=== PATIENT | female | born 1950 | race Caucasian/White ===

== ENCOUNTER 2024-12-18 11:03 | Outpatient (AMB) | payer MEDICARE, OTHER, SELFPAY ==
--- OUTSIDE RECORDS SUMMARY | 2024-09-12 14:30 | XMS_ITS ---
Author Organization [facility] Address [facility] [place] [address] Care Team Providers Care Egg Processor Name Role Phone DO NOT, USE UNKNOWN Primary Care Provider Gumaro Yepez Unavailable [phone] SELF, REFERRAL Unavailable Unavailable Sita Benson Unavailable [phone] REASON FOR VISIT RIGHT T11, T12, L1 MB Radiofrequency Ablation Encounters Encounter Location Date Provider Diagnosis [facility] [address] [address] [address] 09/12/2024 Sita Benson Plan Of Treatment No Information Progress Notes * SUNDEEP ZARATEHDOB:[birth year] (74 yo F)Acc No.[id number]:09/12/2024 Patient: KATINA CANDELARIA Provider: Citlaly Benson M.D :1950 A ge:74 Y S ex:Female Date:09/12/2024 Address:[address] [place] [address] [facility] Pcp:USE UNKNOWN DO NOT Subjective: * Chief Complaints: * 1 . RIGHT T11, T12, L1 MB Radiofrequency Ablation. * Medical History: Objective: * Vitals: Assessment: Plan: * Treatment: * Images: * Electronic signature of Davy Benson MD on 12/18/2024 at 01:32 PM EDT Sign off status: Pending * Provider: Citlaly Benson M.D Date: 0 09/12/2024 Generated for Nithyai jorge/Fatemeh/eTransmitting on: 0 12/18/2024 01:32 PM EDT
--- OUTSIDE RECORDS SUMMARY | 2024-09-25 14:00 | XMS_ITS ---
Author Organization [facility] Address [address] [place] [address] Care Team Providers Care Automotive Sales Professional Name Role Phone DO NOT, USE UNKNOWN Primary Care Provider Gumaro Yepez Unavailable [phone] SELF, REFERRAL Unavailable Unavailable Rogers Preciado Unavailable [phone] Allergies Allergen (clinical drug ingredient) Drug/Non Drug Allergy documented on EMR Reaction Allergy Type Onset Date Status angiotensin-converting enzyme inhibitor (FN) URIEL Inhibitors Unknown Drug Allergy Acti ve REASON FOR VISIT RIGHT sacroiliac joint injection Encounters Encounter Location Date Provider Diagnosis [facility] [address] [address] [address] 09/25/2024 Rogers Preciado Plan Of Treatment No Information Progress Notes * SUNDEEP ZARATEHDOB:[birth year] (74 yo F)Acc No.[id number]:09/25/2024 Patient: KATINA CANDELARIA Provider: Jovani Preciado MD :1950 A ge:74 Y S ex:Female Date:09/25/2024 Address:[address] [place], [place] [address], [id number] Pcp:USE UNKNOWN DO NOT Subjective: * Chief Complaints: * 1 . RIGHT sacroiliac joint injection. * HPI: C onstitutional: Patient has consented to: R IGHT sacroiliac joint injection. ALLERGIES: Patient denies any allergies to Iodine, shellfish or Contrast. BLOOD THINNERS/ABX: Patient denies taking any antibiotics, aspirin or contra-indicated blood thinners. INFECTION: Patient denies having rash, fever or infection. FALSEWORK BUILDER: Patient has a bus driver present. CHEMISTRY TECHNICAL OFFICER: Denies having a pacemaker or defibrillator. * Medical History: C ANCER; BREAST, ASTHMA, OSTEOPHOROSIS, ARTHRITIS. * Surgical History: T UBAL LIGATION , RIGHT ROTATOR CUFF , BREAST , LEFT ROTATOR CUFF . * Family History: ARTHRITIS. * Allergies: A CE Inhibitors. Objective: * Vitals: Assessment: Plan: * Treatment: * Procedures: L IDOCAINE 2% 100mg/5mL (20mg/mL) LOT#: [id number] EXPIRATION DATE: 06/2025 [facility]#: [id number] - - - - - - - - - - - - - - - - - - - - - - - - - - - - - - - - - BUPIVICAINE 0.5% HALFWAY 50mg/10ml(5mg/ml) LOT#: [id number] EXPIRATION DATE: 04/11/25 [facility]#: [id number] - - - - - - - - - - - - - - - - - - - - - - - - - - - - - - - - - TRIAMCINOLONE (KENALOG 40) 400mg/10mL (40mg/mL) LOT#: [id number] EXPIRATION DATE: 10/09/2025 [facility]#: [id number] - - - - - - - - - - - - - - - - - - - - - - - - - - - - - - - - - OMNIPAQUE 350mgI/mL 100mL LOT#:[id number] EXPIRATION DATE: 08/31/2026 [facility]#: [id number] - - - - - - - - - - - - - - - - - - - - - - - - - - - - - - - - - . * Images: * Electronic signature of Stew Preciado MD on 12/18/2024 at 01:32 PM EDT Sign off status: Pending * Provider: Jovani Preciado MD Date: 0 09/25/2024 Generated for Gena patel/Fatemeh/Jesse on: 0 12/18/2024 01:32 PM EDT History and Physical Notes * HPI (History of Present Illness) Category Sub-Category Detail Notes Category Not es Constitutional Patient has consented to: RIGHT sacroiliac joint injection. ALLERGIES: Patient denies any allergies to Iodine, shellfish or Contrast. BLOOD THINNERS/ABX: Patient denies taking any antibiotics, aspirin or contra-indicated blood thinners. INFECTION: Patient denies having rash, fever or infection. FALSEWORK BUILDER: Patient has a bus driver present. CHEMISTRY TECHNICAL OFFICER: Denies having a pacemaker or defibrillator.
[2024-12-18 11:06] VITALS: BP 126/84; PULSE 72; O2SAT 96; BMI 27.8
--- NOTE | 2024-12-18 11:06 | A.OFFVIS_ITS ---
Vital Signs 12/18/24 11:06 Height 5 ft 4 in Weight 162 lb 0.636 oz BMI 27.8 BP 126/84 Blood Pressure Location Lt brachial Position Sitting Pulse 72 Pulse Source Pulse Oximeter Pulse Oximetry (%) 96 Oxygen Delivery Method Room Air Intake Visit Reasons: copd Intake Note: Pt would like to discuss changing Wixela. Corrections Officer Required: No Accompanied by: Self / Same As Patient Allergies URIEL Inhibitors (URIEL INHIBITORS) Allergy (Unknown, Verified 12/18/24 11:43) COUGH uriel inhibators Allergy (Unknown, Uncoded 12/18/24 11:43) Unknown Medication List - Last Reconciled 12/18/24 by April Beckham MD albuterol sulfate 90 mcg/actuation (Ventolin HFA) 2 puffs inhalation Q6H PRN amlodipine 2.5 mg PO DAILY atorvastatin (Lipitor) 10 mg PO DAILY cyclobenzaprine 5 mg PO TID PRN fluticasone propion-salmeterol 500-50 mcg/dose (Wixela Inhub) 1 inh inhalation BID hydrochlorothiazide 12.5 mg PO DAILY losartan 100 mg PO DAILY meloxicam 15 mg PO DAILY xhcmrdhedoec-ewzu-rbnrb acid 18-400 mg-mcg (Centrum Women) 1 tab PO DAILY Do you need a note to return to daycare/school/sports/work: No HPI HPI copd: Details: THIS 74 YEARS OLD FEMALE IS A NEW PATIENT MANAGEMENT OF HER COPD. SHE IS LIVING BY HERSELF, BUT HER SISTER LIVES IN THE SAME HOUSE. SHE USED TO WORK A IT SYSTEMS ANALYST CONSULTANT. SHE HAS NO HISTORY OF EXPOSURE TO DUST , CHEMICALS , SMOKE ETC.. STARTED HAVING ATTACKS OF BRONCHIAL ASTHMA AT AGE 11, SHE WOULD HAVE SUCH ATTACKS ONLY WHEN SHE HAD COLD SYMPTOMS. IN BETWEEN SHE WAS OKAY. SHE HAS HAD NO ALLERGY TO ANY. PARTICULAR ITEMS HER SYMPTOMS AFFECT HER AROUND THE YEAR. OVER THE PAST MANY YEARS THE SYMPTOMS HAVE GOTTEN SOMEWHAT WORSE., WITH MORE FREQUENT EPISODES OF COUGH AND SHORTNESS OF BREATH. SHE HAS WIXELA 500-50 1 INHALATION B.I.D. BUT CLAIMS THAT SHE DOES NOT FEEL ANY DIFFERENCE, . WHEN SHE USES IT SHE DOES USE ALBUTEROL 2 PUFFS Q 6 HOURS P.R.N. ONLY WHEN SHE HAS COLD SYMPTOMS. SHE DOES NEED TO USE PREDNISONE FOR A FEW DAYS WHEN SHE HAS ANY UPPER RESPIRATORY INFECTION, AND IT HAPPENS ABOUT ONCE OR TWICE A DAY. 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 SHE SUFFERED FROM COVID INFECTION TWICE, BUT RECOVERED WELL AT HOME. SHE IS UP TO DATE ON HER VACCINE SHE HAS ALWAYS BEEN NONSMOKER. AT PRESENT SHE IS OKAY, EXCEPT FOR MILD INTERMITTENT COUGH, GETS SHORT OF BREATH AFTER CLIMBING 2 FLIGHTS OF STAIRS. AND ALSO GETS SHORT OF BREATH IF SHE HAS TO WALK UP HILL. USUALLY IN [facility], WITH MILD HYPERTENSION, BACK PAIN, AND HYPERLIPIDEMIA, WHICH ARE ALL WELL CONTROLLED. [facility] Medical History Asthma with COPD Social History Patient Tobacco Use Status: Never used Tobacco Review of Systems Const All systems reviewed & are unremarkable except as noted in HPI and below Eyes Reports no additional complaints ENT Reports no additional complaints Card Denies chest pain and Reports dyspnea on exertion (MILD ) Resp Reports as per HPI and Reports dyspnea on exertion (MILD ) Reports no additional complaints Musc Reports back pain Skin/Breast Reports system reviewed and no additional complaints, except as documented Neuro Reports no additional complaints Psych Reports no additional complaints Endo Reports no additional complaints Levon/Lymph Reports no additional complaints Aller/Immun Reports no additional complaints Physical Exam Vital Signs: Last Vital Signs Pulse 72 12/18/24 11:06 BP 126/84 12/18/24 11:06 Pulse Ox 96 12/18/24 11:06 Oxygen Delivery Method Room Air 12/18/24 11:06 BMI result Body Mass Index 27.8 Const General: healthy appearing, comfortable, no acute distress, alert and awake Orientation/consciousness: patient oriented x3 HEENT Head: Yes normal to inspection General nose exam: No nasal polyps present and No nasal discharge present Face and sinus: Yes sinuses nontender Mouth: oropharynx normal Throat: Yes posterior oropharynx normal Eyes General: appearance normal, both eyes and all related structures Neck Neck: Yes normal visual inspection, Yes no lymphadenopathy, Yes trachea midline and Yes no JVD Thyroid: Thyroid normal Resp Other: CHEST IS SYMMETRICAL, PERCUSSION NOTE RESONANT , BREATH SOUNDS ARE SLIGHTLY. DISTANT WITH PROLONGED EXPIRATORY PHASE THERE ARE NO AUDIBLE WHEEZES, RHONCHI OR CREPITATIONS. Cardio Palpation: normal PMI Rate: regular rate Rhythm: regular rhythm Heart sounds: no gallops and no murmurs Peripheral pulses: Peripheral pulses 2+ throughout GI Palpation (GI): Soft to palpation, Tenderness to palpation present (GI), No hepatosplenomegaly present and Palpable mass present Auscultation: normal bowel sounds Back/Spine/Pelvis Thoracic/Lumbar Spine: thoracic and lumbar spine normal to inspection and thoraco-lumbar ROM limited Skin General skin exam: no rashes or lesions noted Neuro General: patient oriented x3 and no focal motor deficits Cranial nerves: Yes CN's II-XII intact bilaterally Extrem General: Yes normal to inspection, Yes no clubbing, cyanosis or edema and Yes no calf tenderness Psych Appearance: grossly normal and well kempt Speech and movement: Normal speech and movement present Results Reviewed Results Reviewed: PULMONARY FUNCTION TEST PERFORMED IN 2022 AT [facility], FVC 46%, FEV1 39%. FEV1/FVC 64 NO RESPONSE TO BRONCHODILATORS TLC 65% DLCO 59% C/W SEVERE OBSTRUCTIVE AIRWAY DISORDER Assessment & Plan Assessment & Plan (1) Asthma with COPD: Comment: SHE HAS HISTORY OF BRONCHIAL ASTHMA STARTING AT AGE 11, IT SEEMS TO HAVE PROBLEM REST SLOWLY IN 2 CHRONIC OBSTRUCTIVE PULMONARY DISEASE. PULMONARY FUNCTION TEST IN 2022, CONSISTENT WITH SEVERE OBSTRUCTIVE AIRWAY DISORDER, AND WITHOUT ANY RESPONSE TO BRONCHODILATOR THERAPY. THIS IS MORE CHRONIC OBSTRUCTIVE PULMONARY DISEASE THEN BRONCHIAL ASTHMA AT THIS TIME Code(s): J44.89 - Other specified chronic obstructive pulmonary disease Category: Medical Plan: I SPENT PLENTY OF TIME IN EXPLAINING TO THE PATIENT ABOUT HER PULMONARY FUNCTION TEST FINDINGS AND. DISCUSSION ABOUT BRONCHIAL ASTHMA VS COPD. AT THIS POINT I THINK WE WILL GET A BASELINE CHEST X-RAY , PULMONARY FUNCTION TEST, AND THEN DECIDE WHAT WOULD BE THE BEST MODE OF TREATMENT. I HAVE CUT DOWN THE DOSE OF WIXELA TO 250-50 1 INHALATION B.I.D., AND ADVISED HER TO USE ALBUTEROL 2 PUFFS Q 6 HOURS BUT ONLY P.R.N. IF THERE IS ANY WHEEZING. SHE MAY NEED TO HAVE SHORT COURSE OF PREDNISONE , IF AFTER ANY RESPIRATORY INFECTION HER SYMPTOMS LAST FOR MORE THAN 5 DAYS . I TOLD HER THAT THE BEST STEP IS TO PREVENT ANY RESPIRATORY INFECTIONS, AND MAKE SURE THAT SHE GETS COVID WELL FLU VACCINE ON A YEARLY BASIS. DISCUSSED WITH HER ABOUT THE GENERAL MANAGEMENT OF COPD. Orders: Orders XR chest 2V Today J44.89 - Other specified chronic obstructive pulmonary disease PFT pulmonary function test Today J44.89 - Other specified chronic obstructive pulmonary disease Medications: New albuterol sulfate 90 mcg/actuation (Ventolin HFA) 2 puffs inhalation Q4-6H PRN 8.5 grams 5RF shortness of breath or wheezing 30 days prednisone 20 mg PO BID 10 tabs 2RF 5 days fluticasone propion-salmeterol 250-50 mcg/dose (Wixela Inhub) 1 inh inhalation BID 60 ea 5RF ASTHMA/COPD 30 days Coding Level of Care Code New Pt Level 4 (80803) Diagnoses Asthma with COPD J44.89
--- OUTSIDE RECORDS SUMMARY | 2024-12-18 13:33 | XMS_ITS ---
Author Name [facility] Organization Unknown History of Medication Use Medication Directions Dispensed Refills Start Date End Date Stat us Synvisc-One 48 mg/6 mL intra-articular syringe Take 6 mL by intraarticular route. 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 ProblemAct ENS_AONECT Encounters Encounter Type Encounter Reason Primary Diagnosis Location Date Ambulatory [facility] 02/23/2024 Ambulatory [facility] 02/22/2024 Amb[facility] 02/22/2024 Amb[facility] 02/01/2024 Amb[facility] 02/01/2024 Amb[facility] 08/11/2022 Care Team Organization Name Specialty Phone Email Start Date End Da te [facility] ACO 11/29/2024 [facility] Sammy Vides [facility] 03/24/202311/28 [facility] Shabnam [facility] 02/17/2022 11/29/2023
--- OUTSIDE RECORDS SUMMARY | 2024-12-18 13:33 | XMS_ITS | Patient Health Record ---
Author Organization [facility] Address [address] [place] [address] [place] [address] Care Team Providers Care Mill Helper Name Role Phone DO NOT, USE UNKNOWN Primary Care Provider Gumaro Yepez Unavailable [phone] SELF, REFERRAL Unavailable Unavailable Rogers Preciado Unavailable [phone] Sita Benson Unavailable [phone] Allergies Allergen (clinical drug ingredient) Drug/Non Drug Allergy documented on EMR Reaction Allergy Type Onset Date Status angiotensin-converting enzyme inhibitor (FN) URIEL Inhibitors Unknown Drug Allergy Acti ve Reason For Referral No Information Medications Medication SIG (Take, Route, Frequency, Duration) Notes Start Date End Date Status Losartan Potassium 100 MG 1 tablet Orall y Once a day Active amLODIPine Besylate 2.5 MG 1 tablet Oral ly Once a day Active Valium 5 MG 1-2 tablet as needed 1 hour before procedure Orally once; Duration: 1 days Active Lidocaine 5 % 1 patch remove after 12 hours Externally Once a day; Duration: 30 days Active Atorvastatin Calcium 10 MG 1 tablet Oral ly Once a day Active hydroCHLOROthiazide 12.5 MG 1 capsule in the morning Orally Once a day Active Problems Problem Type SNOMED Code ICD Code Onset Dates Problem Status W/U Status Risk Notes Problem Chronic pain syndrome (064170578) Chronic pain syndrome (G89.4) Active confirmed Problem Lumbar spondylosis (554746203) Lumbar spondylosis (M47.816) Active confirmed Problem Thoracic facet syndrome (038926104) Thoracic facet syndrome (M47.894) Active confirmed Problem Thoracic spondylosis (914527199) Thoracic spondylosis (M47.814) Active confirmed Vital Signs Blood pressure diastolic 93 mm Hg 09/15/2024 Blood pressure systolic 127 mm Hg 09/15/2024 Encounters Encounter Location Date Provider Diagnosis [facility] [address] [place] [address] [address] [place] [address] 07/13/2024 Gumaro Haley Chronic pain syndrome G89.4 ; Thoracic spondylosis M47.814 ; Lumbar spondylosis M47.816 and Myofascial muscle pain M79.18 [facility] [place] [address] 07/27/2024 Gumaro Haley Chronic pain syndrome G89.4 ; Thoracic spondylosis M47.814 ; Lumbar spondylosis M47.816 and Myofascial muscle pain M79.18 [facility] [address] [address] [place] [address] 08/08/2024 Athanasios Tzaras Chronic pain syndrome G89.4 and Thoracic spondylosis M47.814 [facility] [address] 08/10/2024 Gumaro Haley Chronic pain syndrome G89.4 ; Thoracic spondylosis M47.814 ; Lumbar spondylosis M47.816 and Myofascial muscle pain M79.18 [facility] [address] [address] [place] [address] 08/22/2024 Athanasios Tzaras Chronic pain syndrome G89.4 and Thoracic spondylosis M47.814 [facility] [address] 08/24/2024 Gumaro Haley Chronic pain syndrome G89.4 ; Thoracic spondylosis M47.814 ; Lumbar spondylosis M47.816 and Myofascial muscle pain M79.18 [facility] [address] [address] [place] [address] 09/15/2024 Rogers Jassal Chronic pain syndrome G89.4 and Thoracic spondylosis M47.814 [facility] [place] [address] 09/21/2024 Gumaro Haley Thoracic spondylosis M47.814 ; Sacroiliac joint disease M53.3 ; Chronic pain syndrome G89.4 ; Lumbar spondylosis M47.816 and Myofascial muscle pain M79.18 [facility] [address] [place] [address] 07/13/2024 Gumaro Haley Chronic pain syndrome G89.4 [facility] [address] [place] [address] 08/09/2024 Gumaro Haley [facility] [address] [place] [address] 08/24/2024 Gumaro Haley Chronic pain syndrome G89.4 and Thoracic spondylosis M47.814 Assessments Encounter Date Diagnosis (ICD Code) Assessment Notes Treatment Notes Treatment Clinical Notes Section Notes 07/13/2024 Chronic pain syndrome (ICD-10 - G89.4) 07/13/2024 Thoracic spondylosis (ICD-10 - M47.814) 07/13/2024 Chronic pain syndrome (ICD-10 - G89.4) 07/27/2024 Chronic pain syndrome (ICD-10 - G89.4) 07/27/2024 Thoracic spondylosis (ICD-10 - M47.814) 08/08/2024 Chronic pain syndrome (ICD-10 - G89.4) 08/10/2024 Chronic pain syndrome (ICD-10 - G89.4) 08/22/2024 Chronic pain syndrome (ICD-10 - G89.4) 08/24/2024 Chronic pain syndrome (ICD-10 - G89.4) 09/15/2024 Chronic pain syndrome (ICD-10 - G89.4) 08/24/2024 Chronic pain syndrome (ICD-10 - G89.4) 09/21/2024 Sacroiliac joint disease (ICD-10 - M53.3) 09/21/2024 Thoracic spondylosis (ICD-10 - M47.814) 08/24/2024 Thoracic spondylosis (ICD-10 - M47.814) 09/15/2024 Thoracic spondylosis (ICD-10 - M47.814) 09/21/2024 Chronic pain syndrome (ICD-10 - G89.4) 08/24/2024 Thoracic spondylosis (ICD-10 - M47.814) 08/22/2024 Thoracic spondylosis (ICD-10 - M47.814) 08/10/2024 Thoracic spondylosis (ICD-10 - M47.814) 08/08/2024 Thoracic spondylosis (ICD-10 - M47.814) 07/27/2024 Lumbar spondylosis (ICD-10 - M47.816) 07/13/2024 Lumbar spondylosis (ICD-10 - M47.816) 07/13/2024 Myofascial muscle pain (ICD-10 - M79.18) 07/27/2024 Myofascial muscle pain (ICD-10 - M79.18) 08/10/2024 Lumbar spondylosis (ICD-10 - M47.816) 08/24/2024 Lumbar spondylosis (ICD-10 - M47.816) 09/21/2024 Lumbar spondylosis (ICD-10 - M47.816) 08/24/2024 Myofascial muscle pain (ICD-10 - M79.18) 09/21/2024 Myofascial muscle pain (ICD-10 - M79.18) 08/10/2024 Myofascial muscle pain (ICD-10 - M79.18) Plan Of Treatment Pending Test Test Name Order Date X ray : Spines, lumbar 2 views 5 X ray : Spines, lumbar 2 views 5 X ray : Spines, lumbar 2 views 5 X ray : Spines, lumbar 2 views 5 X ray : Spines, lumbar 2 views 5 X ray : Spines, lumbar 2 views 5 X ray : Thoracic spine 2 views 5 X ray : Thoracic spine 2 views 5 X ray : Thoracic spine 2 views 5 X ray : Thoracic spine 2 views 5 X ray : Thoracic spine 2 views 5 X ray : Thoracic spine 2 views 5 Insurance Providers Payer Name Payer Address Payer Phone Subscriber Number Group Number Insured Name Patient Relationship to Insured Coverage Start Date Coverage End Date [place] [phone] [id number] KATINA Zarate Self - patient is the insured 6 [facility] [address] [place] [address] [id number] KATINA Zraate Self - patient is the insured Medical (General) History Medical History History ICD Code CANCER; BREAST ASTHMA OSTEOPHOROSIS ARTHRITIS Surgical History Surgery Date(Month/Year) TUBAL LIGATION RIGHT ROTATOR CUFF BREAST LEFT ROTATOR CUFF
--- OUTSIDE RECORDS SUMMARY | 2024-12-18 13:33 | XMS_ITS | Clinical Summary ---
Author Organization [facility] [address] [facility] Address [address] [place] [address] Phone Care Team Providers Care Instrument Processing Tech Name Role Phone Sourav Haque MD Primary Care Provider [phone] Allergies Active Allergy Reactions Criticality Noted Date Comments Yonny Inhibitors Low 11/10/2011 Cough from yonny inhibitor zestoretic Medications acetaminophen (TYLENOL) 325 mg tablet Take 2 tablets (650 mg total) by mouth. 12/29/19 23 Active blood-glucose meter misc 1 Lancet by extracorporeal route 2 (two) times a day. 02/15/20 20 Active calcium carb/mag/vitamin D3 (CALCIUM CARB-VIT D3-MAGNESIUM ORAL) Take 1 tablet by mouth 1 (one) time each day. OTC Active fluticasone-umecli dinium-vilanterol (Trelegy Ellipta) 100-62.5-25 mcg inhaler Inhale 1 puff (100 mcg total). 04/15/19 24 Active lancets (OneTouch Delica Plus Lancet) 30 gauge Apply 1 each topically. 08/27/19 21 Active OneTouch Ultra Test test strip USE TO TEST BLOOD SUGAR ONCE DAILY 11/26/19 21 Active albuterol HFA (PROAIR HFA ; PROVENTIL HFA ; VENTOLIN HFA) 90 mcg/actuation inhaler Inhale 2 puffs by mouth every 4 (four) hours if needed for wheezing or shortness of breath. 8.5 g 10 05/05/19 25 Active atorvastatin (LIPITOR) 10 mg tablet TAKE 1 TABLET DAILY 90 tablet 1 05/05/19 25 Active amLODIPine (NORVASC) 2.5 mg tablet TAKE 1 TABLET DAILY 90 tablet 1 05/05/19 25 Active diclofenac (VOLTAREN) 1 % topical gelIndications:Int ermittent palpitations,Calcu zenaida of right kidney,Acute right-sided low back pain without sciatica,Asthma in adult, moderate persistent, uncomplicated,Pred iabetes,Age-relate d osteoporosis without current pathological fracture,Encounter for screening for cardiovascular disorders Apply 2 gram four times daily to affected joint 100 g 10/10/19 25 Active hydroCHLOROthiazid e (MICROZIDE) 12.5 mg capsuleIndications :Intermittent palpitations,Calcu zenaida of right kidney,Acute right-sided low back pain without sciatica,Asthma in adult, moderate persistent, uncomplicated,Pred iabetes,Age-relate d osteoporosis without current pathological fracture,Encounter for screening for cardiovascular disorders Take 1 capsule (12.5 mg total) by mouth 1 (one) time each day. 90 each 10/10/19 25 Active losartan (COZAAR) 100 mg tabletIndications: Intermittent palpitations,Calcu zenaida of right kidney,Acute right-sided low back pain without sciatica,Asthma in adult, moderate persistent, uncomplicated,Pred iabetes,Age-relate d osteoporosis without current pathological fracture,Encounter for screening for cardiovascular disorders Take 1 tablet (100 mg total) by mouth 1 (one) time each day. 90 each 10/10/19 25 Active alendronate (FOSAMAX) 70 mg tablet Take 1 tablet (70 mg total) by mouth every 7 (seven) days. Take in the morning with a full glass of water, on an empty stomach, and do not take anything else by mouth or lie down for the next 30 min. 12 tablet 4 12/05/19 25 Active Active Problems Problem Noted Date Diagnosed Date Hyperlipidemia 09/23/2022 Overview (05/28/2023): Last Assessment & Plan: Atorvastatin 10 mg at bedtime.Asked her to get her repeat fasting lipids and labs checked today so that they are available for review for her PCP appointment tomorrow. She will go today. Leg pain 09/23/2022 Overview (05/28/2023): Last Assessment & Plan: No obvious palpable cords or masses or swelling but given recent onset of symptoms, will obtain a unilateral lower extremity venous ultrasound to rule out DVT-I have called over to [facility] and they have an appointment for 130PM tomorrow-they will notify the patient Dyspnea on effort 09/23/2022 Overview (05/28/2023): exercise stress echocardiogram on 02/04/2022-she was only able to exercise for 4 minutes and 44 seconds to a 3.8 MET workload but to 74% of max predicted heart rate only but at this level of exercise, she did not have any evidence of ischemia or infarction; she had a normal resting ejection fraction of 60 to 65%. Last Assessment & Plan: Likely related to asthma-recommended that she use the Advair twice daily as recommended and see if her symptoms improve; if not, she can contact us again at which point we can schedule her for some sort of ischemic work-up; I do not feel strongly about nuclear stress test at this time given unremarkable stress echo at symptom limitation and lack of clear symptoms of angina Palpitation 09/22/2022 Overview (05/28/2023): Holter monitor on 02/13/2022 which showed sinus rhythm with an average heart rate of 76 bpm, occasional APCs, rare atrial pairs, atrial bigeminy, 2 atrial runs up to 10 beats, rare PVCs, 1 couplet, symptoms of palpitations and shortness of breath correlated to normal sinus rhythm. Last Assessment & Plan: No recent recurrences. Given such infrequent episodes, I do not think any monitor that I order will be of great benefit. Her Holter monitor did show a few runs of atrial tachycardia but interestingly they were not symptomatic. I did review that she could investigate commercial EKG recording apps such as the [employer] or [email or web address]. These are an [id number] cost so it is purely if she is interested. Ultimately, if this is an arrhythmia, it is Most likely an atrial tachycardia since that was what was seen on Holter monitoring and less likely atrial fibrillation or atrial flutter due to the short nature of the symptoms. I reviewed vagal maneuvers she could try should she have another episode. I also reviewed that if she does have symptoms, she should sit down and rest. If symptoms last more than 30 minutes and are not alleviated by vagal maneuvers, she should go to the ER. She verbalized understanding of all of this information. Ultimately, supraventricular tachycardias are generally benign but can be quite symptomatic. She has had a reassuring stress echo which showed normal ejection fraction and no evidence of ischemia at symptom limitation. Age-related osteoporosis wit hout current pathological fracture 06/20/2021 Newly diagnosed diabetes ([facility] V24, [facility] V 28) 02/15/2020 Breast cancer ([facility] V24, [facility] V28) 016 Knee pain, left 07/08/2015 Overview (05/28/2023): [facility] Sleep apnea 06/12/2014 Overview (05/28/2023): Can not tolerate cPAP HH (hiatus hernia) 07/24/2013 Erosive gastritis 07/24/2013 HTN (hypertension) 11/10/2011 Overview (05/28/2023): Last Assessment & Plan: Slightly elevated today but well controlled on prior visits; continue current losartan 100 mg daily, hydrochlorothiazide 12.5 mg daily, amlodipine 2.5 mg daily 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 GERD (gastroesophageal reflux disease) 2 Fe deficiency anemia 11/10/2011 Overview (05/28/2023): Patient has had multiple evaluations including 3 colonoscopies and upper endoscopies done at the same sitting and a capsule endoscopy, and a capsule endoscopy with no source of bleeding identified Asthma in adult, moderate persistent, uncomplica fany 11/10/2011 Overview (05/28/2023): Last Assessment & Plan: Given that the treatment with dual therapy with Advair is not helping and in the other hand producing hoarseness, I explained the technique to use triple therapy with Trelegy 1 puff once a day. She has now developed COPD in the last PFTs so I think triple therapy will be beneficial for her. I will see her back when she comes back from [place] in August 2023. I have also ordered a chest x-ray. Encounters Date Type Department Care Team Description 12/03/2024 Telephone Adult [address] [phone] Nathalia Solo NP 11/30/2024 9:53 AM EDT - 11/30/2024 11:59 PM EDT Hospital Encounter [facility] [address] [place] [phone] Intermittent palpitations; Calculus of right kidney; Acute right-sided low back pain without sciatica; Asthma in adult, moderate persistent, uncomplicated; Prediabetes; Age-related osteoporosis without current pathological fracture; Encounter for screening for cardiovascular disorders Discharge Disposition: Home or Self Care 11/30/2024 8:45 AM EDT - 11/30/2024 11:59 PM EDT Hospital Encounter [facility] [address] [place] [phone] Encounter for screening mammogram for breast cancer Discharge Disposition: Home or Self Care 10/20/2024 Telephone Pulmonolgy - [facility] [address] [facility] [address] [place] [phone] Sourav Haque MD 10/04/2024 Telephone Adult Medicine [facility] [address], [place] [phone] Nathalia Solo NP 10/03/2024 Telephone Adult Medicine [address] [phone] Nathalia Solo NP 10/02/2024 12:32 PM EDT - 10/02/2024 11:59 PM EDT Hospital Encounter Radiology Department - [address] [phone] Intermittent palpitations; Calculus of right kidney; Acute right-sided low back pain without sciatica; Asthma in adult, moderate persistent, uncomplicated; Prediabetes; Age-related osteoporosis without current pathological fracture; Encounter for screening for cardiovascular disorders Discharge Disposition: Home or Self Care 09/28/2024 1:00 PM EDT Office Visit Adult Medicine [address] [phone] Nathalia Solo NP Intermittent palpitations (Primary Dx); Calculus of right kidney; Acute right-sided low back pain without sciatica; Asthma in adult, moderate persistent, uncomplicated; Prediabetes; Age-related osteoporosis without current pathological fracture; Encounter for screening for cardiovascular disorders from Last 3 Months Immunizations Name Administration Dates Next Due Influenza trivalent, 0.5mL ( Fluzone High-dose) 65yo and older 12/28/2022,01/27/2022,01/13/2021,12/24,03/07/2019,02/06/2018,01/05/2017 Accertify SARS-CoV-2 COVID-19, mRNA, LNP-S, preservative free 02/12/2021,07/28/2020,06/30/2020 Pneumococcal conjugate 13 va lent (Prevnar 13, PCV13) 2mo and older 02/19/2016 Pneumococcal polysaccharide 23 valent (Pneumovax 23) 2yo and older 02/10/2018 Tdap Tetanus diptheria acell ular pertussis (Boostrix; Adacel) 7yo and older 12/28/2022 Zoster Live 06/15/2012 Surgical History Surgery Date Site/Laterality Comments BREAST LUMPECTOMY PROCEDURE:BREAST LUMPECTOMY SHOULDER SURGERY PROCEDURE: HISTORICAL SHOULDER SURGERY; COMMENT: right rotator cuff TUBAL LIGATION PROCEDURE: HISTORICAL TUBAL LIGATION COLONOSCOPY PROCEDURE: HISTORICAL COLONOSCOPY; COMMENT: has had 3 UPPER GASTROINTESTINAL ENDOSCOPY 07/24/2013 PROCEDURE: ID UPPER GI ENDOSCOPY PERFORMED; 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 Biopsies: No dysplasia. Medical History Medical History Date Comments Iron (Fe) deficiency anemia DX:I bruce (Fe) deficiency anemia Malignant neoplasm of breast (female) ([facility] V24, [facility] V28) DX:Malignant neoplasm of br east (female) ([facility]) Age related osteoporosis DX:Age related osteoporosis GERD (gastroesophageal reflux disease) DX:GERD (gastroesophageal reflux disease) Asthma DX:Asthma Diabetes mellitus ([facility] V 24, [facility] V28) DX:Diabetes mellitus ([facility]) Unspecified essential hypertension DX:Unspecified essential hypertension Esophageal reflux DX:Esophageal reflux Other specified personal his tory presenting hazards to health(V15.89) DX:Other specifie d personal history presenting hazards to health(V15.89); COMMENT: melanoma on nose Breast cancer ([facility] V24, [facility] V28) 01/2015 DX:Breast cancer ([facility]); COMM ENT: Sees Dr. Garcia Sleep apnea 06/12/2014 DX:Sleep apnea; COMMENT: Can not tolerate cPAP Breast cancer ([facility] V24, [facility] V28) 07/08/2015 DX:Breast cancer ([facility]) Knee pain, left 07/08/2015 DX:Knee pain, le ft Family History Medical History Relation Name Comments Asthma Brother Hypertension Brother Thyroid disease Daughter Throat cancer Father nonsmoker, d at 70 Heart failure Mother from it Other: afib Mother Stroke Mother dementia, at age 86 Thyroid disease Sister 2 sisters adhikari ve Breast cancer Neg Hx Colon cancer Neg Hx Ovarian cancer Neg Hx Pancreatic cancer Neg Hx Prostate cancer Neg Hx Relation Name Status Comments Brother Alive Daughter Alive Father (Age 70) larngl can cer Maternal Grandmother (Age 89) Mother (Age 87) hi baez Sister Social History Tobacco Use Types Packs/Day Years Used Date Smoking Tobacco: Never Smokeless Tobacco: Never Alcohol Use Standard Drinks/Week Comments Yes 2.5 (1 standard drink = 0.6 oz p ure alcohol) Comments No Sex and Gender Information Value Date Recorded Sex Assigned at Not on file Legal Sex Female 4:41 AM EST Gender Identity Not on file Sexual Orientation Not on file Obstetrics History Last Filed Vital Signs Vital Sign Reading Time Taken Comments Blood Pressure 132/85 09/28/2024 12:57 PM EDT Pulse 78 09/28/2024 12:57 PM EDT Temperature 36.1 C (96.9 F) 09/28/2024 12:57 PM EDT Respiratory Rate 16 09/28/2024 12:57 PM EDT Oxygen Saturation 95% 09/28/2024 12:57 PM EDT Inhaled Oxygen Concentration - - Weight 70.3 kg (155 lb) 11/30/2024 10:07 AM EDT Height 162.6 cm (5' 4 ) 11/30/2024 10:07 AM EDT Body Mass Index 26.61 11/30/2024 10:07 AM EDT Plan of Treatment Upcoming Encounters Date Type Department Care Team (Late st Contact Info) Description 03/30/2025 11:00 AM EST Office Visit Adult Medicine [facility] [address] [place] [phone] Sourav Haque MD [address] [place] [phone] Health Maintenance Due Date Last Done Comments Zoster Vaccines (1 of 2) 08/10/2012 06/15/2012 Colorectal Cancer Screening: Stool Based Tests (FOBT/FIT) 03/20/2022 Medicare Annual Wellness Visit 03/20/2022 Social Influencers of Health Screening 03/20/2022 RSV Immunization Adult Patients (1 - 1-dose 75+ series) 2024 COVID-19 Vaccine (6 - Pfizer risk season) 2024 02/15/2024, 01/12/2022, 02/12/2021, Additional history exists Influenza Vaccine (#1) 2024 , 12/28/2022, 01/27/2022, Additional history exists Diabetes: Blood Sugar Control Test (HGBA1C) 04/03/2025 10/02/2024, 01/18/2024 Diabetes: Annual Retina Eye Exam 07/26/2025 07/26/2024, 12/22/2022 Diabetes: Annual Foot Exam 09/28/2025 09/28/2024, Falls Risk Assessment 09/28/2025 09/28/2024, 023 Diabetes: Annual Urine Albumin-Creatinine Ratio (uACR) 10/02/2025 10/02/2024 Diabetes: Annual GFR (Glomerular Filtration Rate) 10/02/2025 10/02/2024, 01/18/2024 Hypertension/CHF/CAD Annual BMP Blood Test 10/02/2025 10/02/2024, 01/18/2024 Osteoporosis Screening (Bone Density Screening) 11/30/2026 11/30/2024, 06/17/2021, 12/09/2018, Additional history exists Cholesterol Screening (Lipid Panel) 10/02/2029 10/02/2024, 01/18/2024 DTaP,Tdap,and Td Vaccines (2 - Td or Tdap) 12/28/2032 12/28/2022 Pneumococcal Vaccine: 50+ Years Completed 02/10/2018, 02/19/2016 Hepatitis C Screening Addressed 06/17/2021 Overri dden with the intention of not completing the topic Depression Screening Completed 09/28/2024 Breast Cancer Screening Discontinued 12/01/19, 10/12/2023, 09/08/2022, Additional history exists HIB Vaccines Aged Out No longer eligi ble based on patient's age to complete this topic HPV Vaccines Aged Out No longer eligi ble based on patient's age to complete this topic Hepatitis A Vaccines Aged Out No long er eligible based on patient's age to complete this topic Hepatitis B Vaccines Aged Out No long er eligible based on patient's age to complete this topic IPV Vaccines Aged Out No longer eligi ble based on patient's age to complete this topic MMR Vaccines Aged Out No longer eligi ble based on patient's age to complete this topic Meningococcal ACWY Vaccine Aged Out N o longer eligible based on patient's age to complete this topic Meningococcal B Vaccine Aged Out No l onger eligible based on patient's age to complete this topic RSV Immunization Patients Under 20 months Aged Out No longer eligible based on patient's age to complete this topic Varicella Vaccines Aged Out No longer eligible based on patient's age to complete this topic Procedures Procedure Name Priority Date/Time Associated Diagnosis Comments BD BONE DENSITY DXA AXIAL SKELETON Routine 11/30/2024 11:12 AM EDT Intermittent palpitations Calculus of right kidney Acute right-sided low back pain without sciatica Asthma in adult, moderate persistent, uncomplicated Prediabetes Age-related osteoporosis without current pathological fracture Encounter for screening for cardiovascular disorders MG MAMMO DIGITAL SCREENING W LAN BILAT Routine 11/30/2024 10:14 AM EDT Encounter for screening mammogram for breast cancer BELL URINE CULTURE TUBE Routine 10/02/2024 3:08 PM EDT Intermittent palpitations Calculus of right kidney Acute right-sided low back pain without sciatica Asthma in adult, moderate persistent, uncomplicated Prediabetes Age-related osteoporosis without current pathological fracture Encounter for screening for cardiovascular disorders US RETROPERITONEAL COMPLETE Routine 10/02/2024 1:42 PM EDT Intermittent palpitations Calculus of right kidney Acute right-sided low back pain without sciatica Asthma in adult, moderate persistent, uncomplicated Prediabetes Age-related osteoporosis without current pathological fracture Encounter for screening for cardiovascular disorders URINALYSIS WITH REFLEX MICROSCOPIC AND CULTURE Routine 10/02/2024 1:22 PM EDT Intermittent palpitations Calculus of right kidney Acute right-sided low back pain without sciatica Asthma in adult, moderate persistent, uncomplicated Prediabetes Age-related osteoporosis without current pathological fracture Encounter for screening for cardiovascular disorders CBC WITH AUTO DIFFERENTIAL Routine 10/02/2024 1:22 PM EDT Intermittent palpitations Calculus of right kidney Acute right-sided low back pain without sciatica Asthma in adult, moderate persistent, uncomplicated Prediabetes Age-related osteoporosis without current pathological fracture Encounter for screening for cardiovascular disorders URINALYSIS WITH REFLEX MICROSCOPIC AND CULTURE Routine 10/02/2024 1:22 PM EDT Intermittent palpitations Calculus of right kidney Acute right-sided low back pain without sciatica Asthma in adult, moderate persistent, uncomplicated Prediabetes Age-related osteoporosis without current pathological fracture Encounter for screening for cardiovascular disorders COMPREHENSIVE METABOLIC PANEL Routine 10/02/2024 1:22 PM EDT Intermittent palpitations Calculus of right kidney Acute right-sided low back pain without sciatica Asthma in adult, moderate persistent, uncomplicated Prediabetes Age-related osteoporosis without current pathological fracture Encounter for screening for cardiovascular disorders LIPID PANEL WITH REFLEX TO DIRECT LDL Routine 10/02/2024 1:22 PM EDT Intermittent palpitations Calculus of right kidney Acute right-sided low back pain without sciatica Asthma in adult, moderate persistent, uncomplicated Prediabetes Age-related osteoporosis without current pathological fracture Encounter for screening for cardiovascular disorders CBC AND DIFFERENTIAL Routine 10/02/2024 1:22 PM EDT Intermittent palpitations Calculus of right kidney Acute right-sided low back pain without sciatica Asthma in adult, moderate persistent, uncomplicated Prediabetes Age-related osteoporosis without current pathological fracture Encounter for screening for cardiovascular disorders HEMOGLOBIN A1C Routine 10/02/2024 1:22 PM EDT Intermittent palpitations Calculus of right kidney Acute right-sided low back pain without sciatica Asthma in adult, moderate persistent, uncomplicated Prediabetes Age-related osteoporosis without current pathological fracture Encounter for screening for cardiovascular disorders MICROALBUMIN CREATININE URINE RATIO Routine 10/02/2024 1:22 PM EDT Intermittent palpitations Calculus of right kidney Acute right-sided low back pain without sciatica Asthma in adult, moderate persistent, uncomplicated Prediabetes Age-related osteoporosis without current pathological fracture Encounter for screening for cardiovascular disorders CULTURE URINE Routine 10/02/2024 1:22 PM EDT Intermittent palpitations Calculus of right kidney Acute right-sided low back pain without sciatica Asthma in adult, moderate persistent, uncomplicated Prediabetes Age-related osteoporosis without current pathological fracture Encounter for screening for cardiovascular disorders from Last 3 Months Results * BD Bone Density DXA Axial Skeleton (11/30/2024 11:12 AM EDT) Anatomical Region Laterality Modality Wrist, Hip, L-spine Bone Densito metry 11/30/2024 11:3 3 AM EDT Impressions 11/30/2024 11:34 AM EDT 1. Osteoporosis. 2. FRAX analysis yields a 10-year probability of major osteoporotic fracture of 26.1% and a 10-year probability of hip fracture of 11.8%. Code 58775 -------- FINAL REPORT -------- Dictated By: Mayco Perdomo Dictated Date: 11/30/2024 11:33 ET Assigned Physician: Mayco Perdomo Reviewed and Electronically Signed By: Mayco Perdomo Signed Date: 11/30/2024 11:34 ET Workstation ID: [id number] Transcribed By: Self Edit Transcribed Date: 11/30/2024 11:33 ET Narrative 11/30/2024 11:34 AM EDT HISTORY: The patient is a 74-year-old postmenopausal female with clinical concern for metabolic bone disease. FINDINGS: Dual energy x-ray absorptiometry of the lumbar spine and femurs is performed. The mean bone mineral density at L1-3 is 0.681 gm/cm2 which is 58% of that of young normals and 69% of that of age matched controls. This yields a T-score of -4.1 and a Z-score of -2.5 which is diagnostic of osteoporosis. The mean bone mineral density of the femurs bilaterally is 0.684 gm/cm2 which is 68% of that of young normals and 85% of that of age matched controls. This yields a T-score of -2.6 and a Z-score of -0.9 which is diagnostic of osteoporosis. The T-score of the right femoral neck is -3.4 and that of the left femoral neck is -2.7 which is diagnostic of osteoporosis. Procedure Note Mayco Perdomo MD - 11/30/2024 HISTORY: The patient is a 74-year-old postmenopausal female with clinicalconcern for metabolic bone disease. FINDINGS: Dual energy x-ray absorptiometry of the lumbar spine and femursis performed. The mean bone mineral density at L1-3 is 0.681 gm/cm2 whichis 58% of that of young normals and 69% of that of age matched controls.This yields a T-score of -4.1 and a Z-score of -2.5 which is diagnostic ofosteoporosis. The mean bone mineral density of the femurs bilaterally is 0.684 gm/ua3lbjxe is 68% of that of young normals and 85% of that of age matchedcontrols. This yields a T-score of -2.6 and a Z-score of -0.9 which isdiagnostic of osteoporosis. The T- score of the right femoral neck is -3.4and that of the left femoral neck is -2.7 which is diagnostic ofosteoporosis. IMPRESSION: 1. Osteoporosis. 2. FRAX analysis yields a 10-year probability of major osteoporoticfracture of 26.1% and a 10-year probability of hip fracture of 11.8%. Code 48998 -------- FINAL REPORT -------- Dictated By: Mayco Perdomo Dictated Date: 11/30/2024 11:33 ET Assigned Physician: Mayco Perdomo Reviewed and Electronically Signed By: Mayco Perdomo Signed Date: 11/30/2024 11:34 ET Workstation ID: [id number] Transcribed By: Self Edit Transcribed Date: 11/30/2024 11:33 ET us Nathalia Solo NP IMG DXA PROCEDURES Final Res ult * MG Mammo Digital Screening w Lan bilat (11/30/2024 10:14 AM EDT) Anatomical Region Laterality Modality Breast Bilateral Mammography 11/30/2024 10:5 2 AM EDT Impressions 11/30/2024 11:05 AM EDT No mammographic evidence of new or recurrent malignancy. No suspicious interval change. A negative mammogram in the presence of a clinically suspicious palpable abnormality does not preclude the possibility of malignancy or alter the indications for biopsy. ASSESSMENT: BI-RADS 2: BENIGN RECOMMENDATION(S): 1: Routine screening mammogram BILATERAL in 1 year. [facility]amm[facility] location[facility] at [address], [address] -------- FINAL REPORT -------- Dictated By: Joao Wang Dictated Date: 11/30/2024 10:52 ET Assigned Physician: Joao Wang Reviewed and Electronically Signed By: Joao Wang Signed Date: 11/30/2024 11:05 ET Workstation ID: [id number] Transcribed By: Self Edit Transcribed Date: 11/30/2024 10:52 ET Narrative 11/30/2024 11:05 AM EDT EXAM: SCREENING MAMMOGRAPHY, BILATERAL HISTORY: SCREENING. Personal history of breast cancer. Previous reports indicate right breast cancer treated with lumpectomy 2014. COMPARISON: 10/12/23, 09/08/22, 03/17/21, 10/08/20, 03/15/20 TECHNIQUE: Synthesized CC and MLO projections of each breast. Tomosynthesis of each breast in the CC and MLO projections. ADDITIONAL IMAGING: None Computer-aided detection was employed with the [employer] AI 3-D. TISSUE DENSITY: There are scattered areas of fibroglandular density. (BI-RADS category B) FINDINGS: RIGHT BREAST: There is unchanged architectural distortion with some central dystrophic calcification at the lumpectomy site. There are diffuse arterial and scattered round typically benign calcifications. No change in the region of clips in the right axilla. No additional suspicious right breast findings LEFT BREAST: There are multiple circumscribed varying sized equal density oval masses some with typically benign calcifications. No significant interval change. No additional suspicious left breast findings Procedure Note Joao Wnag MD - 11/30/2024 EXAM: SCREENING MAMMOGRAPHY, BILATERAL HISTORY: SCREENING. Personal history of breast cancer. Previous reportsindicate right breast cancer treated with lumpectomy 2014. COMPARISON: 10/12/23, 09/08/22, 03/17/21, 10/08/20, 03/15/20 TECHNIQUE: Synthesized CC and MLO projections of each breast.Tomosynthesis of each breast in the CC and MLO projections. ADDITIONAL IMAGING: None Computer-aided detection was employed with the [employer] AI 3-D. TISSUE DENSITY: There are scattered areas of fibroglandular density.(BI-RADS category B) FINDINGS: RIGHT BREAST: There is unchanged architectural distortion with some central dystrophiccalcification at the lumpectomy site. There are diffuse arterial andscattered round typically benign calcifications. No change in the regionof clips in the right axilla. No additional suspicious right breastfindings LEFT BREAST: There are multiple circumscribed varying sized equal density oval massessome with typically benign calcifications. No significant intervalchange. No additional suspicious left breast findings IMPRESSION: No mammographic evidence of new or recurrent malignancy. No suspicious interval change. A negative mammogram in the presence of a clinically suspicious palpableabnormality does not preclude the possibility of malignancy or alter theindications for biopsy. ASSESSMENT: BI-RADS 2: BENIGN RECOMMENDATION(S): 1: Routine screening mammogram BILATERAL in 1 year. [facility] location[facility] at [address], [address] -------- FINAL REPORT -------- Dictated By: Joao Wang Dictated Date: 11/30/2024 10:52 ET Assigned Physician: Joao Wang Reviewed and Electronically Signed By: Joao Wang Signed Date: 11/30/2024 11:05 ET Workstation ID: [id number] Transcribed By: Self Edit Transcribed Date: 11/30/2024 10:52 ET us Self Referral Sppl IMG BI PROCEDURES Final Resul t * Bell urine culture tube (10/02/2024 3:08 PM EDT) Extra Tube Hold for add-ons. 10/02/2024 5:01 PM EDT [facility] Comment:Auto resulted. Urine Urine specimen obtained by clean catch procedure / Unknown Non-blood Collection / Unknown 10/02/2024 3:08 PM EDT 10/02/2024 3:08 PM EDT Nathalia Solo [employer] LAB URINE ORDERABLES Final R esult [facility] [address] [place] [id number], [place] [phone] * US Retroperitoneal Complete (10/02/2024 1:42 PM EDT) Anatomical Region Laterality Modality Body Ultrasound 10/02/2024 1:56 PM EDT Impressions 10/02/2024 2:03 PM EDT Multiple bilateral renal calcifications seen , the largest measuring 0.9 cm in the mid pole of the right kidney, which could represent a nonobstructing stone. -------- FINAL REPORT -------- Dictated By: Manju Braden Dictated Date: 10/02/2024 13:56 ET Assigned Physician: Manju Braden Reviewed and Electronically Signed By: Manju Braden Signed Date: 10/02/2024 14:03 ET Workstation ID: [id number] Transcribed By: Self Edit Transcribed Date: 10/02/2024 13:56 ET Narrative 10/02/2024 2:03 PM EDT US RETROPERITONEAL COMPLETE TECHNIQUE: Complete ultrasound evaluation of the retroperitoneum was performed. COMPARISON: Abdomen/pelvis CT on February 13, 2013. Report of x-ray of the lumbar spine at outside facility on July 13, 2024 describes right renal calculus. Reason for the study: kidney stone Xray found ? stone in the right kidney, FINDINGS: RIGHT KIDNEY: Size: 11.6 cm. Multiple cystic lesions seen, the largest bilobed located in the lower pole of the kidney measuring 6.3 x 5.3 x 5.7 cm. Echogenic focus in the mid pole measuring 0.9 cm could correlate with the radiographic finding. Additional calcifications seen. No hydronephrosis. LEFT KIDNEY: Size: 10.2 cm. Multiple cystic lesions seen, the largest measuring 8.1 x 4.2 x 7.6 cm in the lower pole. Multiple calcifications seen. BLADDER: Partially distended urinary bladder without obvious intravesical stones. Only left ureteral jet seen. Prevoid urinary bladder volume measures 85.3 cc. Post void volume of 0 cc. Procedure Note Manju Braden MD - 10/02/2024 US RETROPERITONEAL COMPLETE TECHNIQUE: Complete ultrasound evaluation of the retroperitoneum was performed. COMPARISON: Abdomen/pelvis CT on February 13, 2013. Report of x-ray of thelumbar spine at outside facility on July 13, 2024 describes right renalcalculus. Reason for the study: kidney stone Xray found ? stone in the right kidney, FINDINGS: RIGHT KIDNEY: Size: 11.6 cm. Multiple cystic lesions seen, the largestbilobed located in the lower pole of the kidney measuring 6.3 x 5.3 x 5.7cm. Echogenic focus in the mid pole measuring 0.9 cm could correlate withthe radiographic finding. Additional calcifications seen. Nohydronephrosis. LEFT KIDNEY: Size: 10.2 cm. Multiple cystic lesions seen, the largestmeasuring 8.1 x 4.2 x 7.6 cm in the lower pole. Multiple calcificationsseen. BLADDER: Partially distended urinary bladder without obvious intravesicalstones. Only left ureteral jet seen. Prevoid urinary bladder volumemeasures 85.3 cc. Post void volume of 0 cc. IMPRESSION: Multiple bilateral renal calcifications seen , the largest measuring 0.9cm in the mid pole of the right kidney, which could represent anonobstructing stone. -------- FINAL REPORT -------- Dictated By: Manju Braden Dictated Date: 10/02/2024 13:56 ET Assigned Physician: Manju Braden Reviewed and Electronically Signed By: Manju Braden Signed Date: 10/02/2024 14:03 ET Workstation ID: [id number] Transcribed By: Self Edit Transcribed Date: 10/02/2024 13:56 ET us Nathalia Solo NP IMG US PROCEDURES Final Resu lt * (ABNORMAL) Urinalysis with reflex microscopic and culture (10/02/2024 1:22 PM EDT) Specific [place] Urine 1.003 1.003 - 1.030 LAB URINALYSIS - AUTOMATED METHOD 10/02/2024 5:47 PM EDT [facility] pH, Urine 7.0 5.0 - 8.0 pH LAB URINALYSIS - AUTOMATED METHOD 10/02/2024 5:47 PM EDT [facility] Leukocytes, Urine Trace(A) Negative LAB URINALYSIS - AUTOMATED METHOD 10/02/2024 5:47 PM [facility] Nitrite, Urine Negative Negative LAB URINALYSIS - AUTOMATED METHOD 10/02/2024 5:47 PM [facility] Protein, Urine Negative <=Trace mg/dL LAB URINALYSIS - AUTOMATED METHOD 10/02/2024 5:47 PM [facility] Glucose, Urine Negative Negative mg/dL LAB URINALYSIS - AUTOMATED METHOD 10/02/2024 5:47 PM [facility] Ketones, Urine Negative Negative mg/dL LAB URINALYSIS - AUTOMATED METHOD 10/02/2024 5:47 PM [facility] Urobilinogen, Urine 0.2 0.2 - 1.0 mg/dL LAB URINALYSIS - AUTOMATED METHOD 10/02/2024 5:47 PM [facility] Bilirubin, Urine Negative Negative LAB URINALYSIS - AUTOMATED METHOD 10/02/2024 5:47 PM [facility] Blood, Urine Negative Negative LAB URINALYSIS - AUTOMATED METHOD 10/02/2024 5:47 PM [facility] RBC, Urine 4.0 0 - 4 /HPF LAB URINALYSIS - AUTOMATED METHOD 10/02/2024 5:47 PM [facility] WBC, Urine 1.1 0 - 4 /HPF LAB URINALYSIS - AUTOMATED METHOD 10/02/2024 5:47 PM [facility] Squamous Epithelial, Urine 61(H) 0 - 60 /LPF LAB URINALYSIS - AUTOMATED METHOD 10/02/2024 5:47 PM [facility] Bacteria, Urine Negative Negative /HPF LAB URINALYSIS - AUTOMATED METHOD 10/02/2024 5:47 PM [facility] Hyaline Casts, Urine 1.19 0 - 3 /LPF LAB URINALYSIS - AUTOMATED METHOD 10/02/2024 5:47 PM EDT [facility] Urine Urine specimen obtained by clean catch procedure / Unknown Non-blood Collection / Unknown 10/02/2024 1:22 PM EDT 10/02/2024 1:22 PM EDT Nathalia Solo [employer] LAB URINE ORDERABLES Final R esult [facility] [address] [place] [address], [place] [phone] * Lipid panel with reflex to direct LDL (10/02/2024 1:22 PM EDT) Cholesterol 167 0 - 200 mg/dL LAB CHEMISTRY METHOD 10/02/2024 8:50 PM EDT [facility] Triglycerides 90 0 - 150 mg/dL LAB CHEMISTRY METHOD 10/02/2024 8:50 PM EDT [facility] HDL 63 >=40 mg/dL LAB CHEMISTRY METHOD 10/02/2024 8:50 PM EDT [facility] LDL Calculated 86 0 - 100 mg/dL LAB CHEMISTRY METHOD 10/02/2024 8:50 PM EDT [facility] VLDL Cholesterol Marco 18 mg/dL LAB CHEMISTRY METHOD 10/02/2024 8:50 PM EDT [facility] Non HDL Chol. (LDL+VLDL) 104 <145 mg/dL LAB CHEMISTRY METHOD 10/02/2024 8:50 PM EDT [facility] Chol/HDL Ratio 2.7 0.0 - 4.4 LAB CHEMISTRY METHOD 10/02/2024 8:50 PM EDT [facility] Blood Venous blood specimen / Unknown Venipuncture / Unknown 10/02/2024 1:22 PM EDT 10/02/2024 1:22 PM EDT Nathalia Solo [employer] LAB BLOOD ORDERABLES Final R esult [facility] [address] [place] [address], * (ABNORMAL) CBC auto differential (10/02/2024 1:22 PM EDT) WBC 7.4 4.8 - 10.8 K/mcL LAB HEMETOLOGY METHOD 10/02/2024 4:52 PM EDT [facility] RBC 5.00(H) 3.80 - 4.80 M/mcL LAB HEMETOLOGY METHOD 10/02/2024 4:52 PM EDT [facility] Hemoglobin 14.9 11.5 - 16.0 g/dL LAB HEMETOLOGY METHOD 10/02/2024 4:52 PM EDT [facility] Hematocrit 46.5 35.0 - 47.0 % LAB HEMETOLOGY METHOD 10/02/2024 4:52 PM EDT [facility] MCV 92.4 79.0 - 98.0 FL LAB HEMETOLOGY METHOD 10/02/2024 4:52 PM EDT [facility] MCH 29.6 27.0 - 32.0 pcg LAB HEMETOLOGY METHOD 10/02/2024 4:52 PM EDT [facility] MCHC 32.0 32.0 - 37.0 g/dL LAB HEMETOLOGY METHOD 10/02/2024 4:52 PM EDT [facility] RDW 13.1 11.0 - 15.0 % LAB HEMETOLOGY METHOD 10/02/2024 4:52 PM EDT [facility] Platelets 325 130 - 400 K/mcL LAB HEMETOLOGY METHOD 10/02/2024 4:52 PM EDT [facility] MPV 11.5(H) 7.0 - 11.0 FL LAB HEMETOLOGY METHOD 10/02/2024 4:52 PM EDT [facility] NRBC 0.0 <1.0 % LAB HEMETOLOGY METHOD 10/02/2024 4:52 PM EDT [facility] NRBC Absolute 0.00 <0.10 K/mcL LAB HEMETOLOGY METHOD 10/02/2024 4:52 PM [facility] Neutrophils Relative 66.0 % LAB [facility] Lymphocytes Relative 23.2 % LAB HEMETOLOGY METHOD 10/02/2024 4:52 PM [facility] Monocytes Relative 7.7 % LAB HEMETOLOGY METHOD 10/02/2024 4:52 PM [facility] Eosinophils Relative 2.2 % LAB HEMETOLOGY METHOD 10/02/2024 4:52 PM [facility] Basophils Relative 0.5 % LAB HEMETOLOGY METHOD 10/02/2024 4:52 PM [facility] Immature Granulocytes Relative 0.4 % LAB HEMETOLOGY METHOD 10/02/2024 4:52 PM [facility] Neutrophils Absolute 4.85 1.50 - 7.00 K/mcL LAB HEMETOLOGY METHOD 10/02/2024 4:52 PM [facility] Lymphocytes Absolute 1.71 1.00 - 5.00 K/mcL LAB HEMETOLOGY METHOD 10/02/2024 4:52 PM [facility] Monocytes Absolute 0.57 0.20 - 1.00 K/mcL LAB HEMETOLOGY METHOD 10/02/2024 4:52 PM [facility] Eosinophils Absolute 0.16 0.00 - 0.50 K/mcL LAB HEMETOLOGY METHOD 10/02/2024 4:52 PM [facility] Basophils Absolute 0.04 0.00 - 0.20 K/mcL LAB HEMETOLOGY METHOD 10/02/2024 4:52 PM [facility] Immature Granulocytes Absolute 0.03 0.00 - 0.03 K/mcL LAB HEMETOLOGY METHOD 10/02/2024 4:52 PM EDT [facility] Blood Venous blood specimen / Unknown Venipuncture / Unknown 10/02/2024 1:22 PM EDT 10/02/2024 1:22 PM EDT Nathalia Solo [employer] LAB BLOOD ORDERABLES Final R esult [facility] [address] [place] [address], [place] [phone] * (ABNORMAL) Microalbumin creatinine urine ratio (10/02/2024 1:22 PM EDT) Creatinine, Urine 22.0 mg/dL LAB CHEMISTRY METHOD 10/02/2024 9:54 PM EDT [facility] Microalb, Ur 8.6 0.0 - 29.0 mg/L LAB CHEMISTRY METHOD 10/02/2024 9:54 PM EDT [facility] Microalb/Creat Ratio 39(H) <30 mg/g creat LAB CHEMISTRY METHOD 10/02/2024 9:54 PM EDT [facility] Urine Urine specimen obtained by clean catch procedure / Unknown Non-blood Collection / Unknown 10/02/2024 1:22 PM EDT 10/02/2024 1:22 PM EDT Nathalia Solo [employer] LAB URINE ORDERABLES Final R esult Performing Organization Address City/[facility]/ZIP Co de Phone Number [facility] [address] [place] [address], [place] [phone] * Culture urine (10/02/2024 1:22 PM EDT) Culture, Urine >100,000 CFU/mL Mixed urogenital derrick, no uropathogens present. Suggest repeat specimen if clinically indicated. 10/04/2024 9:54 AM EDT [facility] Urine Urine specimen obtained by clean catch procedure / Unknown Non-blood Collection / Unknown 10/02/2024 1:22 PM EDT 10/02/2024 5:47 PM EDT Nathalia Solo [employer] LAB MICROBIOLOGY - GENERAL O RDERABLES Final Result Performing Organization Address [facility] Co de Phone Number [facility] [address] [place] [address], [place] [phone] * Hemoglobin A1c (10/02/2024 1:22 PM EDT) Pathologist [facility] Hemoglobin A1C 6.1 <6.5 % LAB CHEMISTRY METHOD 10/02/2024 9:19 PM EDT [facility] Mean Bld Glu Estim. 128 mg/dL LAB CHEMISTRY METHOD 10/02/2024 9:19 PM EDT [facility] Blood Venous blood specimen / Unknown Venipuncture / Unknown 10/02/2024 1:22 PM EDT 10/02/2024 1:22 PM EDT Nathalia Solo [employer] LAB BLOOD ORDERABLES Final R esult Performing Organization Address [facility] Co de Phone Number [facility] [address] [place] [address], [place] [phone] * (ABNORMAL) Comprehensive metabolic panel (10/02/2024 1:22 PM EDT) Pathologist [facility] Sodium 137 133 - 145 mmol/L LAB CHEMISTRY METHOD 10/02/2024 8:50 PM EDT [facility] Potassium 4.0 3.5 - 5.5 mmol/L LAB CHEMISTRY METHOD 10/02/2024 8:50 PM EDT [facility] Chloride 104 96 - 110 mmol/L LAB CHEMISTRY METHOD 10/02/2024 8:50 PM [facility] CO2 26 21 - 32 mmol/L LAB CHEMISTRY METHOD 10/02/2024 8:50 PM [facility] Anion Gap 7 3 - 11 LAB CHEMISTRY METHOD 10/02/2024 8:50 PM [facility] Glucose 120(H) 70 - 100 mg/dL LAB CHEMISTRY METHOD 10/02/2024 8:50 PM [facility] BUN 11 5 - 25 mg/dL LAB CHEMISTRY METHOD 10/02/2024 8:50 PM [facility] Creatinine 0.75 0.50 - 1.10 mg/dL LAB CHEMISTRY METHOD 10/02/2024 8:50 PM [facility] eGFR 83 >=60 mL/min/1. 73m2 LAB CHEMISTRY METHOD 10/02/2024 8:50 PM [facility] Comment:Calculation based on the Chronic Kidney Disease Epidemiology Collaboration (CKD-EPI) equation refit without adjustment for race. BUN/Creatinine Ratio 14.7 LAB CHEMISTRY METHOD 10/02/2024 8:50 PM [facility] Calcium 9.0 8.5 - 10.5 mg/dL LAB CHEMISTRY METHOD 10/02/2024 8:50 PM [facility] AST (SGOT) 16 10 - 42 unit/L LAB CHEMISTRY METHOD 10/02/2024 8:50 PM [facility] ALT (SGPT) 32 10 - 60 unit/L LAB CHEMISTRY METHOD 10/02/2024 8:50 PM [facility] Alkaline Phosphatase 66 42 - 121 unit/L LAB CHEMISTRY METHOD 10/02/2024 8:50 PM [facility] Total Protein 7.0 6.0 - 8.0 g/dL LAB CHEMISTRY METHOD 10/02/2024 8:50 PM [facility] Albumin 3.8 3.2 - 5.0 g/dL LAB CHEMISTRY METHOD 10/02/2024 8:50 PM EDT [facility] Total Bilirubin 0.6 0.0 - 1.4 mg/dL LAB CHEMISTRY METHOD 10/02/2024 8:50 PM EDT [facility] Blood Venous blood specimen / Unknown Venipuncture / Unknown 10/02/2024 1:22 PM EDT 10/02/2024 1:22 PM EDT Nathalia Solo [employer] LAB BLOOD ORDERABLES Final R esult [facility] [address] [place] [address], from Last 3 Months Insurance MEDICARE [facility] Care Teams Instrument Processing Tech Relationship Specialty Start Date End Date Sourav Haque MD [address] [place] [address] PCP - General Internal Medicine 12/19/14
--- OUTSIDE RECORDS SUMMARY | 2024-12-18 13:33 | XMS_ITS | Clinical Summary ---
Author Organization [facility] Address [address] [id number] Care Team Providers Care Interior Paneler Name Role Phone Sourav Haque MD Primary Care Provider [phone] Allergies Active Allergy Reactions Criticality Noted Date Comments Yonny Inhibitors Low 11/10/2011 Cough from yonny inhibitor zestoretic Medications Medication Sig Dispensed Refills Start Date End Date Status albuterol (PROVENTIL HFA;VENTOLIN HFA) 108 (90 BASE) MCG/ACT inhaler Inhale 2 puffs into the lungs every 6 (six) hours as needed for wheezing. 0 Active ferrous sulfate 325 (65 FE) MG tablet Take 1 tablet (325 mg total) by mouth every morning with breakfast. 0 Active CALCIUM-VITAMIN D PO Take by mouth daily. 0 Active amLODIPine (NORVASC) tablet 2.5 mg Take 1 tablet (2.5 mg total) by mouth daily. 0 Active Fluticasone-Salmetero l (ADVAIR DISKUS IN) Inhale 1 puff into the lungs daily. 0 Active hydroCHLOROthiazide (MICROZIDE) 12.5 MG capsule Take 1 capsule (12.5 mg total) by mouth daily. 0 Active Losartan Potassium (COZAAR PO) Take 40 mg by mouth daily. 0 Active atorvastatin (LIPITOR) tablet 10 mg Take 1 tablet (10 mg total) by mouth daily. 0 02/17/2021 Active Blood Glucose Monitoring Suppl (ONE [employer] ULTRA 2) w/Device KIT Use to check blood sugars twice daily 0 02/15/2020 Active Rjomoui-Kloxmklcu-Ywz pan D ER 600-40-500 MG-MG-UNIT TB24 Take 1 tablet by mouth daily. 0 Active Diclofenac Sodium 1 % GEL Place 4 g onto the skin. 0 01/09/2020 Active Glucose Blood (OneTouch Ultra) STRP USE TO TEST BLOOD SUGAR ONCE DAILY 0 11/25/2020 Active OneTouch Delica Lancets 30G MISC Apply 1 each topically. 0 08/26/2020 Active anastrozole (ARIMIDEX) 1 MG tablet Take 1 tablet (1 mg total) by mouth daily 90 tablet 3 09/30/2021 Active fluticasone-salmetero l 250-50 MCG/ACT AEPB 0 12/23/2021 Act ce vitamin D3 (cholecalciferol) 25 MCG (1000 UT) tablet Take 1 tablet (25 mcg total) by mouth daily. 0 Active Active Problems Problem Noted Date Diagnosed Date Arthritis of knee, left 10/30/2021 Arthritis of knee, left 08/01/2021 Arthritis of knee, left 07/02/2021 Chronic right-sided thoracic back pain 1 Age-related osteoporosis wit hout current pathological fracture 02/17/2017 senior care current use of aromatase inhibitor 11/2016 Malignant neoplasm of upper- outer quadrant of right breast in female, estrogen receptor positive 07/08/2015 Cancer Staging:Pathologic stage from 02/25/2015:Stage IB(T1c, N1mi, cM0) - Signed by Mayco Garcia MD on 02/17/2017 Sleep apnea 06/12/2014 Overview: Overview: Can not tolerate cPAP Asthma 11/10/2011 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 History of iron deficiency anemia 11/10/2011 Overview: Overview: Patient has had multiple evaluations including 3 colonoscopies and upper endoscopies done at the same sitting and a capsule endoscopy, and a capsule endoscopy with no source of bleeding identified GERD (gastroesophageal reflux disease) 2 HTN (hypertension) 11/10/2011 Family History Medical History Relation Name Comments Throat cancer Father Breast cancer Neg Hx Colon cancer Neg Hx Ovarian cancer Neg Hx Pancreatic cancer Neg Hx Prostate cancer Neg Hx Relation Name Status Comments Father (Age 70) Maternal Grandmother (Age 89) Social History Tobacco Use Types Packs/Day Years Used Date Smoking Tobacco: Never Smokeless Tobacco: Never Alcohol Use Standard Drinks/Week Comments No 0 (1 standard drink = 0.6 oz pur e alcohol) Sex and Gender Information Value Date Recorded Sex Assigned at Not on file Gender Identity Not on file Sexual Orientation Not on file Job Start Date Occupation Industry Not on file Not on file Not on file Last Filed Vital Signs Vital Sign Reading Time Taken Comments Blood Pressure 122/60 10/01/2022 2:12 PM EDT Pulse 85 10/01/2022 2:12 PM EDT Temperature 37.1 C (98.7 F) 10/01/2022 2:12 PM EDT Respiratory Rate - - Oxygen Saturation 97% 10/01/2022 2:12 PM EDT Inhaled Oxygen Concentration - - Weight 72.8 kg (160 lb 6.4 oz) 10/01/2022 2:12 P M EDT Height 165.1 cm (5' 5 ) 10/01/2022 2:12 PM EDT Body Mass Index 26.69 10/01/2022 2:12 PM EDT Plan of Treatment Health Maintenance Due Date Last Done Comments Hepatitis C Screening 1949 Depression Screening 1961 Preventative Health Evaluation 1967 DTap / Tdap / Td (1 - Tdap) 1968 Shingrix-Zoster Vaccine (1 of 2) 1968 Colon Cancer Screening (Colonoscopy) 1994 Fall Risk Assessment 2014 Osteoporosis Screening (DEXA Scan) 2014 RSV Adult > 60+ Yrs or (1 - 1-dose 75+ series) 2024 COVID-19 Vaccine ( season) 2024 02/12/2021, 07/28/2020, 06/30/2020 Influenza Vaccine (#1) 2024 2, 01/13/2021, 12/25/2019, Additional history exists Pneumococcal Vaccine Completed 02/10/2018, 02/19/20 16 Hepatitis B Vaccines Aged Out No long er eligible based on patient's age to complete this topic RSV Ped < 20 months Aged Out No longe r eligible based on patient's age to complete this topic Care Teams Interior Paneler Relationship Specialty Start Date End Date Sourav Haque MD PCP - General Internal Medicine 02/12/17
== END 2024-12-18 11:44 | disposition home or self-care (01) ==
PROVIDERS: PCP Internal Medicine; Visit Provider Internal Medicine
DX: J44.89 Other specified chronic obstructive pulmonary disease (principal)
CPT/HCPCS: 99204

== ENCOUNTER 2024-12-18 11:03 | Outpatient (REF) | payer MEDICARE, OTHER, SELFPAY ==
--- NOTE | ~2024-12-18 | XR_ITS ---
EXAMINATION: XR CHEST CLINICAL INFORMATION: J44.89 - Other specified chronic obstructive pulmonary disease COMPARISON: None available. TECHNIQUE: PA and lateral views FINDINGS: There is a large volume hiatal hernia within the gas and fluid-filled level. No consolidation, pleural effusion or pneumothorax. The heart is not enlarged. Multilevel thoracic spondylosis. Radiopaque material screws, right humeral head. Patient's large body habitus. XR/XR chest 2V IMPRESSION: Hiatal hernia, large volume. No acute airspace disease. Multilevel spondylosis, thoracic spine. Status post rotator cuff tendon tear repair. Electronically signed by: Kyler Rios MD 12/18/2024 12:26 PM EDT
== END 2024-12-18 11:04 | disposition home or self-care (01) ==
LOC: HO.XRAY 11:03
PROVIDERS: PCP Internal Medicine; Visit Provider Internal Medicine
DX: J44.89 Other specified chronic obstructive pulmonary disease (principal)
CPT/HCPCS: 71046; 99202

== ENCOUNTER → 2024-12-18 11:51 | Outpatient (BNV) | payer MEDICARE, OTHER, SELFPAY | PROVIDERS: PCP Internal Medicine; Visit Provider Radiology Diagnostic Radiology | DX: J44.89 Other specified chronic obstructive pulmonary disease (principal); K44.9 Diaphragmatic hernia without obstruction or gangrene; M47.814 Spondylosis without myelopathy or radiculopathy, thoracic region | CPT/HCPCS: 71046 ==

== ENCOUNTER 2025-03-20 13:53 | Outpatient (AMB) | payer MEDICARE, OTHER, SELFPAY ==
[2025-03-20 13:53] VITALS: BMI 27.8
--- NOTE | 2025-03-20 13:53 | A.PHYSOV_ITS ---
Vital Signs 03/20/25 13:53 Height 5 ft 4 in Weight 162 lb BMI 27.8 Intake Visit Reasons: F/U after injection 02/06/25 + updated MRI Intake Note: paul is a 74 year old female in office today for a follow up after Right T9 Transforaminal Epidural Injection 02/06/25. Physical Metallurgist Required: No Allergies URIEL Inhibitors (URIEL INHIBITORS) Allergy (Unknown, Verified 03/20/25 13:56) COUGH uriel inhibators Allergy (Unknown, Uncoded 12/18/24 11:43) Unknown HPI Comments Details: History of Present Illness The patient is a 74-year-old female who presents for a follow-up visit regarding chronic right-sided lower thoracic pain. The pain has been occurring intermittently for approximately four years. A thoracic spine MRI from December 29, 2024, revealed small disc protrusions at the T7-T8, T8-T9, and T9-T10 levels, with her symptoms being consistent with the T9-T10 disc. The MRI also showed a possible hemangioma at L2, but a subsequent CT scan on February 28, 2025, did not show any correlating findings and did not identify the hemangioma. Her last office visit was on February 01, 2025. She underwent a right T9 transforaminal epidural steroid injection on February 06, 2025, which provided about one week of relief after taking two weeks to become effective. She also tried dry needling with a physical therapist, which did not seem to help. Regarding medications, the patient has previously used muscle relaxers with little effect, as well as NSAIDs such as diclofenac and meloxicam. She has tried Percocet in the past, which caused severe nausea, and she has never tried tramadol. Patient reports nausea with use of oxycodone. Pain Description - Location: Right-sided lower thoracic area. - Onset and Duration: Intermittent pain for the last four years. - Quality: Described as a grabbing sensation. - Severity: Can be unbearable when it occurs. - Exacerbating Factors: Pain occurs with almost any activity, including cleaning the house, shopping, carrying heavy items, and washing her hair. - Relieving Factors: Pain is absent when she is at rest or doing nothing; she finds relief by leaning up against something or using a foam roller. Results - Thoracic Spine MRI (12/29/2024): Showed small disc protrusions at T7-T8, T8-T9 , and T9-T10. - Lumbar Spine MRI (as part of Thoracic MRI): Noted a possible L2 hemangioma. - CT Scan (02/28/2025): Did not show any correlating findings and did not visualize the hemangioma seen on MRI. [facility] Medical History (Updated 03/20/25 @ 14:45 by Filipe Richardson DO) Thoracic spine pain Asthma with COPD Surgical History H/O tubal ligation H/O shoulder surgery History of cancer surgery Social History Alcohol intake: current Alcohol intake frequency: holidays/special occasions only Patient Tobacco Use Status: Never used Tobacco Use of substances other than those prescribed or required for medical reasons: No Review of Systems Narrative Review of Systems - Musculoskeletal: Reports intermittent, grabbing right-sided lower thoracic pain for four years, which is triggered by activity and can be unbearable. - Gastrointestinal: Reports nausea with Percocet. - Constitutional: Denies pain when at rest. Physical Exam Exam Exam: Physical Exam Patient appears to be in no acute distress, appropriately conversant and oriented. She ambulates without antalgia. Lumbar range of motion was slightly restricted in extension. Dural tension signs were negative. Tenderness with palpation over thoracic paraspinal muscles in the mid to lower thoracic segments and upper lumbar segments. Neurological examination of upper and lower extremities was nonfocal. She demonstrated no upper motor neuron signs. Vital Signs: BMI result Body Mass Index 27.8 Assessment & Plan Assessment & Plan (1) Thoracic spine pain: Code(s): M54.6 - Pain in thoracic spine Category: Medical Plan Pain Management - Analgesia: The patient reports her pain is intermittent but can be unbearable. - She experienced only one week of relief from a right T9 transforaminal epidural steroid injection. - Dry needling was also ineffective. - Activities of Daily Living: Pain is triggered by most activities, including house cleaning, shopping, carrying heavy items, and showering. - She is pain-free when resting. - Adverse Effects: The patient reports that Percocet makes her very sick with nausea. - Aberrant Drug Related Behaviors: There is no indication of aberrant drug- related behaviors. Plan Patient was informed and verbally consented to the use of an ambient scribe for clinic note documentation during this visit. 1. 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 A recent right T9 transforaminal epidural steroid injection and dry needling with physical therapy provided minimal to no relief. The previously noted L2 hemangioma is considered an incidental finding and an unlikely cause of her pain, especially as it was not visualized on the subsequent CT scan. Given the patient's history of trying NSAIDs and experiencing severe nausea with Percocet, a trial of tramadol will be initiated for as-needed use during severe pain episodes. The risks of daily use and the potential for dementia associated with medications like gabapentin were discussed. A prescription for 56 tablets of tramadol will be sent to her pharmacy to provide a supply for her upcoming six-month trip to [place], with clear instructions to use them sparingly. R eferral for more advanced treatments, such as a peripheral nerve stimulator, was mentioned but deferred at this time. Follow-up is planned upon her return in September. Discussion Notes I reviewed the patient's case for her chronic right-sided lower thoracic pain. I explained that her thoracic MRI showed small disc protrusions and that a previously suspected hemangioma was not seen on the follow-up CT scan, making it an unlikely cause for her pain. We discussed that the pain is likely from degenerative wear and tear. We discussed treatment options, noting that the recent epidural injection and d ry needling were ineffective. I mentioned the possibility of referral for other treatments like a [employer] peripheral nerve stimulator, but we agreed to defer this. We reviewed medication options, and I explained my reasoning for avoiding gabapentin due to dementia risks and narcotics like Percocet due to her history of severe nausea. I recommended a trial of tramadol for as-needed use, emphasizing that it should be used sparingly to maintain efficacy. I will send a prescription sufficient for her travels to [place], and she will follow up on her return in September. Patient Instructions - A prescription for tramadol will be sent to your pharmacy. - Take this medication only as needed when your pain becomes unbearable. - Use this medication sparingly to ensure it continues to work for you. - Continue to use your foam roller at home for pain relief. - Your pain is likely caused by normal wear and tear, and the hemangioma found on the MRI is not likely the cause of your pain. - You will be traveling to [place] for six months. - Please schedule a follow-up appointment when you return in September. - Please check with the front office associate staff on your way out to make sure we have the correct pharmacy on file for you. Medications: New tramadol Partial fill upon request 50 - 100 mg (1 - 2 x 50 mg) PO Q6H PRN 56 tabs 0RF pain 7 days M54.6 - Pain in thoracic spine Coding Level of Care Code Est Pt Level 4 (79110) Complex visit Add On G2211 Diagnoses Thoracic spine pain M54.6
== END 2025-03-20 14:19 | disposition home or self-care (01) ==
LOC: HO.HPHYS 13:53
PROVIDERS: PCP Internal Medicine; Visit Provider Physical Medicine & Rehabilitation
DX: M54.6 Pain in thoracic spine (principal)
CPT/HCPCS: 99214; G2211

== ENCOUNTER → 2025-03-20 13:53 | Outpatient (BNVA) | payer MEDICARE, OTHER, SELFPAY | PROVIDERS: PCP Internal Medicine; Visit Provider Physical Medicine & Rehabilitation | DX: Z71.2 Person consulting for explanation of examination or test findings (principal); M54.6 Pain in thoracic spine | CPT/HCPCS: 99212 ==